=== PATIENT | male | born 1975 | race Caucasian/White ===

== ENCOUNTER 2019-04-15 21:26 | Inpatient (IN) | payer OTHER ==
[~2019-04-15] VITALS: Ht 182.9 cm; Wt 79.4 kg
[~2019-04-15 21:26] MED LIST: DOXYCYCLINE 10100 M1 PO; NOHOMEMEDICATIONS; PERMETHRIN60 GM TOP
[2019-04-15 21:32] VITALS: BP 121/76
[2019-04-15] MEDS ORDERED: NEURONTIN300 MG PO (21:35)
[2019-04-15 22:09] LABS: ABSOLUTE BASOPHILS 0.1 thou/uL (0.0-0.2); ABSOLUTE EOSINOPHILS 0.2 thou/uL (0.0-0.7); ABSOLUTE LYMPHOCYTES 3.1 thou/uL (0.8-5.3); ABSOLUTE MONOCYTES 0.7 thou/uL (0.0-1.2); ABSOLUTE NEUTROPHILS 5.2 thou/uL (1.6-8.1); BASOPHILS 0.8 %; EOSINOPHILS 2.1 %; HEMATOCRIT 48.9 % (42.0-52.0); HEMOGLOBIN 17.3 gm/dL (14.0-18.0); LYMPHOCYTES 33.3 %; MCH 31.6 pg (26.0-34.0); MCHC 35.3 g/dL (28.0-37.0); MCV 89.3 fL (80.0-100.0); MONOCYTES 7.7 %; MPV 8.4 fl. (7.2-11.1); NUCLEATED RBCS 0 /100WBC; PLATELET COUNT* 247 thou/uL (150-400); POLYS 56.1 %; RBC 5.47 mil/uL (4.50-6.00); RDW-CV 13.6 % (10.5-14.5); WBC 9.3 thou/uL (4.0-11.0)
[2019-04-15 22:15] LABS: CALCIUM 9.4 mg/dL (8.5-10.1); CREATININE 0.9 mg/dL (0.6-1.3); POTASSIUM 3.7 mmol/L (3.5-5.1)
[2019-04-15 22:17] LABS: INR 1.1; PROTIME 11.1 Seconds (9.20-11.50)
[2019-04-15 22:20] LABS: ALBUMIN 4.1 g/dL (3.4-5.0); TOTAL BILIRUBIN 0.8 mg/dL (<0.1-1.0); TOTAL PROTEIN 7.5 g/dL (6.4-8.2)
[2019-04-16] VITALS (7 sets, daily range): BP systolic 92–117; BP diastolic 54–72
[2019-04-16 08:13] LABS: CHOLESTEROL 175 mg/dL (<200); HDL CHOLESTEROL 35 mg/dL (>40); LDL CHOLESTEROL 95 mg/dL (<100); TRIGLYCERIDE 225 mg/dL (<150); VLDL 45 mg/dL (<40)
[2019-04-16 08:34] LABS: SERUM ASSESSMENT Clear
--- NOTE | 2019-04-16 16:42 | 2DMMODE ---
[place] [address] 2 D/M-MODE ECHOCARDIOGRAM Name: PASCUAL ALDANA Room: [facility]16 ADM IN [facility]#: [id number] Admission: 04/15/19 Attend Phys: Cammie Razo Discharge: Date of : 77 Date of Service: 04/16/19 1642 Report #: [id number] THIS REPORT FOR: //name// APPROVED REPORT Study performed: 04/16/2019 14:09:13 EXAM: Comprehensive 2D, Doppler, and color-flow Echocardiogram Patient Location: In-Patient Room #: er Status: routine BSA: 2.01 HR: 75 bpm BP: 108/60 mmHg Rhythm: NSR Other Information Study Quality: Good Indications CVA/TIA Echo Enhancing Agent Indication: Rule out Shunt Agent(s) / Amount(s) Used: Agitated Saline 10 cc 2D Dimensions IVSd: 9.86 (7-11mm) LVOT Diam: 21.69 (18-24mm) LVDd: 50.04 mm PWd: 8.40 (7-11mm) Ascending Ao: 27.86 (22-36mm) LVDs: 29.76 (25-40mm) Aortic Root: 30.29 mm Volumes Left Atrial Volume (Systole) LA ESV Index: 23.80 mL/m2 Aortic Valve AoV Peak Zack.: 1.28 m/s AO Peak Gr.: 6.59 mmHg LVOT Max P.27 mmHg AO Mean Gr.: 3.19 mmHg LVOT Mean P.84 mmHg LVOT Max V: 1.03 m/s AO V2 VTI: 23.87 cm LVOT Mean V: 0.61 m/s SAMREEN (VTI): 3.09 cm2 LVOT V1 VTI: 19.93 [place] [address] 2 D/M-MODE ECHOCARDIOGRAM Name: PASCUAL ALDANA Room: [address] IN ..#: [id number] Admission: 04/15/19 Attend Phys: Cammie Razo Discharge: Date of : 77 Date of Service: 04/16/19 1642 Report #: [id number] Mitral Valve E/A Ratio: 1.50 MV Decel. Time: 149.18 ms MV E Max Zack.: 0.70 m/s MV PHT: 43.26 ms MVA (PHT): 5.09 cm2 TDI E/Lateral E': 5.83 E/Medial E': 6.36 Medial E' Zack.: 0.11 m/s Lateral E' Zack.: 0.12 m/s Pulmonary Valve PV Peak Zack.: 1.16 m/s PV Peak Gr.: 5.39 mmHg Left Ventricle The left ventricle is normal size. There is normal LV segmental wall motion. There is normal left ventricular wall thickness. Left ventricular systolic function is normal. LVEF is 55-60%. The left ventricular diastolic function is normal. Right Ventricle The right ventricle is normal size. The right ventricular systolic function is normal. Atria The left atrium size is normal. Interatrial septum is intact without evidence of ASD or PFO. The right atrium size is normal. Aortic Valve The aortic valve is normal in structure. No aortic regurgitation is present. There is no aortic valvular stenosis. Mitral Valve The mitral valve is normal in structure. Trace mitral regurgitation. No evidence of mitral valve stenosis. Tricuspid Valve The tricuspid valve is normal in structure. Trace tricuspid regurgitation. Unable to assess PA pressure. Pulmonic Valve The pulmonary valve is normal in structure. Trace pulmonic regurgitation[place] [address] 2 D/M-MODE ECHOCARDIOGRAM Name: PASCUAL ALDANA Room: [address] IN [facility]#: [id number] Admission: 04/15/19 Attend Phys: Cammie Razo Discharge: Date of : 77 Date of Service: 04/16/19 1642 Report #: [id number] The aortic root is normal in size. IVC is normal in size and collapses >50% with inspiration. Pericardium There is no pericardial effusion. <Conclusion> The left ventricle is normal size. There is normal left ventricular wall thickness. Left ventricular systolic function is normal. LVEF is 55-60%. The left ventricular diastolic function is normal. Interatrial septum is intact without evidence of ASD or PFO. Trace mitral regurgitation. Trace tricuspid regurgitation. IVC is normal in size and collapses >50% with inspiration. <ELECTRONICALLY SIGNED> By: Reinier Rodarte MD, FACC 04/16/191641 41 [id number] Reinier Rodarte MD, FACC /INF
--- NOTE | 2019-04-16 16:55 | EKG ---
[place] [address] ELECTROCARDIOGRAM REPORT Name: PASCUAL ALDANA Room: [place] [address] ADM IN [facility].R.#: [id number] Admission: 04/15/19 Attend Phys: Raquel Beltrán Discharge: Date of : 77 Report #: [id number] THIS REPORT FOR: //name// [facility] ED Test Date: 2019-04-15 Test Time: 21:57:12 Pat Name: PASCUAL ALDANA Department: Room: [facility] Gender: M Bean Sorter: HUGO : 1975 Requested By: Rolando Sandhu Order Number: [id number] MD: Francisco Maharaj Measurements Intervals [place] Rate: 73 P: 50 RI: 143 QRS: 60 QRSD: 88 T: 22 QT: 367 QTc: 405 Interpretive Statements Sinus rhythm No previous ECG available for comparison Electronically Signed On 04-16-2019 16:55:27 CDT by Francisco Maharaj [email or web address] <ELECTRONICALLY SIGNED> By: Francisco Maharaj MD, FACC 04/16/19 1655 [id number] Francisco Maharaj MD, FACC /EPI
== END 2019-04-16 17:45 | disposition home or self-care (01) | DRG 103 ==
LOC: M.ERS 21:26 → M.TBA-ER 23:48
PROVIDERS: Emergency Medicine Emergency Medical Services; Internal Medicine; ADMIT Internal Medicine
DX: G43.909 Migraine, unspecified, not intractable, without status migrainosus (principal); G45.9 Transient cerebral ischemic attack, unspecified; Z88.0 Allergy status to penicillin; Z79.899 Other long term (current) drug therapy